=== PATIENT | male | born 1970 ===

== ENCOUNTER 2024-10-02 08:22 | Emergency (ER) | payer SELFPAY ==
[2024-10-02] MEDS ORDERED: Ketorolac Tromethamine 30 MG (1 mL) VIAL ONE (09:15)
[2024-10-02] MEDS ORDERED: Boostrix 0.5 ML (Tdap) VIAL (>/=7 yrs of age) ONE (09:15)
[2024-10-02] MEDS ORDERED: Iopamidol-370 76% 500 ML MDV (1 ML CHARGE) ONE (11:51)
== END 2024-10-02 11:20 | disposition home or self-care (01) ==
LOC: ERS 08:22
DX: S32.051A Stable burst fracture of fifth lumbar vertebra, initial encounter for closed fracture (principal); Z23 Encounter for immunization; V89.2XXA Person injured in unspecified motor-vehicle accident, traffic, initial encounter
CPT/HCPCS: 70450; 71260; 72125; 74177; 90471; 90715; 96374; G0390; J1885